=== PATIENT | female | born 1965 | race Caucasian/White ===

== ENCOUNTER 2023-09-10 10:46 | Outpatient (OUT) | payer BC, SELFPAY ==
--- NOTE | 2023-09-10 10:52 | US_ITS ---
The [address] [address] Patient Name: JESUS MCLAUGHLIN MRN: [id number] date: 1965 Sex: F Assigned Patient Location: US Current Patient Location: Accession/Order Number: [id number] Exam Date: 09/10/2023 10:55 Report Date: 09/10/2023 12:01 At the request of: NON-STAFF PHYSICIAN Procedure: US pelvis w/ transvaginal EXAMINATION: US pelvis w/ transvaginal HISTORY: Pelvic Pain COMPARISON: No relevant comparison available. FINDINGS: Transabdominal and transvaginal images The uterus is enlarged in size lobular contour and heterogeneous in echotexture measuring 10.4 x 6.2 x 6.8 cm. Anteflexed. Multiple myometrial masses the largest in the anterior fundal myometrium measures 2.2 x 2.2 x 1.9 cm The endometrium measures 9 mm, normal for premenopausal, thickened for postmenopausal The ovaries are not visualized No free fluid US/US pelvis w/ transvaginal IMPRESSION: Enlarged lobular uterus with multiple myometrial masses. Uterine fibroids are statistically favored Electronically authenticated by: BETSY RAMOS Date: 09/10/2023 12:01
== END 2023-09-10 10:47 | disposition home or self-care (01) ==
LOC: US 10:46
DX: N95.0 Postmenopausal bleeding (principal); M54.50 Low back pain, unspecified
CPT/HCPCS: 76830; 76856

== ENCOUNTER 2023-12-19 10:41 | Outpatient (OUT) | payer BC, SELFPAY ==
--- NOTE | 2023-12-19 10:44 | MM_ITS ---
Patient Name: JESUS MCLAUGHLIN MR#: [id number] : 1965 Exam Date: 12/19/2023 Ordering Doctor: Non-Staff Physician RADIOLOGY REPORT PROCEDURE: MM TOMOSYNTHESIS SCREENING BI COMPARISON: MG MAMM SCREEN 3D KARLIE CAD, 11/23/2022. MG MAMM SCREEN 3D KARLIE CAD, 11/02/2021. MG MAMM SCREEN 3D KARLIE CAD, 10/31/2020. MG MAMM KARLIE SCRN W CAD DIG, 08/30/2011. INDICATIONS: screening Calculator Name NCI Breast Cancer Risk Assessment Tool 5 Year Breast Cancer Risk 1.00% Lifetime Breast Cancer Risk 6.50% Personal Breast Cancer No Personal Ovarian Cancer No Treatments None Family Cancers Father with hodgkins lymphoma cancer at age 55. LOCATION: [facility] BREAST COMPOSITION: The breasts are heterogeneously dense,which may obscure small masses. FINDINGS: DIAGNOSTIC CATEGORY 1--NEGATIVE. RIGHT BREAST: No significant suspicious finding. No significant change has occurred. LEFT BREAST: No significant suspicious finding. No significant change has occurred. RECOMMENDATIONS: ROUTINE MAMMOGRAM AND CLINICAL EVALUATION IN 12 MONTHS. PLEASE NOTE: A NORMAL MAMMOGRAM DOES NOT EXCLUDE THE POSSIBILITY OF BREAST CANCER. A CLINICALLY SUSPICIOUS PALPABLE LUMP SHOULD BE BIOPSIED. Dictated by: Aristides Villanueva M.D. on 12/20/2023 at 15:06 Approved by: Aristides Villanueva M.D. on 12/20/2023 at 15:10
--- OUTSIDE RECORDS SUMMARY | 2023-12-19 11:03 | XMS_ITS | CCD ---
Author Organization [facility] Care Team Providers Care Lab Manager Name Role Phone MICHELE, DR ESTRADA Admitting Unavailable [facility], DR ESTRADA Attending Unavailable MIS, DR ESTRADA Primary Care Unavailable HAZEN, DR BETSY Hawley Consulting Unavailable MIS, DR ESTRADA Consulting Unavailable Problems Problem Classification Problem Date Documented Date Episodic/Chronic Other screening for suspected conditions (not mental disorders or infectious disease) (4 sources) Encounter for screening mammogram for malignant neoplasm of breast; Translations: [ENC SCR MAMMO MALIG NEOPLASM BREAST] Onset: 11-23-2022 Episodic Residual codes; unclassified (1 source) Family history of other malignant neoplasms of lymphoid, hematopoietic and related tissues; Translations: [FAM HX OTH MAL BETTIE LYMPH HEMATPOETC] Onset: 11-30-2022 Episodic Results Test Name Value Interpretation Reference Range Facil ity MG MAMM SCREEN 3D KARLIE CADon 11-23-2022 MG MAMM SCREEN 3D KARLIE CAD Patient: JESUS MCLAUGHLIN. Exam Date: 11/23/2022 : 1965 Gender:F Ordering : DR. NUZHAT ZHOU Admission #: [id number] Family : Order #: [id number] CLICK HERE TO VIEW EXAM RADIOLOGY REPORT PROCEDURE: MAMMOGRAM SCREENING 3D BILATERAL CAD COMPARISON: MG MAMM SCREEN 3D KARLIE CAD, 10/31/2020. MG MAMM SCREEN 3D KARLIE CAD, 11/02/2021. INDICATIONS: Screening mammography Calculator Name NCI Breast Cancer Risk Assessment Tool 5 Year Breast Cancer Risk 1.00% Lifetime Breast Cancer Risk 6.60% Personal Breast Cancer No Personal Ovarian Cancer No Treatments None Family Cancers Father with hodgkins lymphoma cancer at age 55. LOCATION: [facility] BREAST COMPOSITION: Heterogeneously dense,which may obscure small masses. FINDINGS: DIAGNOSTIC CATEGORY 2--BENIGN FINDING. NO CHANGE FROM COMPARISON. Scattered benign-appearing calcifications are present. RIGHT BREAST: No significant suspicious finding. LEFT BREAST: No significant suspicious finding. RECOMMENDATIONS: ROUTINE MAMMOGRAM AND CLINICAL EVALUATION IN 12 MONTHS. PLEASE NOTE: A NORMAL MAMMOGRAM DOES NOT EXCLUDE THE POSSIBILITY OF BREAST CANCER. A CLINICALLY SUSPICIOUS PALPABLE LUMP SHOULD BE BIOPSIED. Dictated by: Betsy Kellogg MD on 11/26/2022 at 09:52 Approved by: Betsy Kellogg MD on 11/26/2022 at 09:55 Normal [facility] Encounters Encounter Date Encounter Type Care Provider Facility Start: 11-23-2022 End: 11-24-[address] ESTRADA [facility] Facility: Payers Date Payer Category Payer Unknown [id number] 1958 Unknown [id number] Summary Purpose Family History No Family History Records Found Advance Directives No Advanced Directives Records Found Additional Source Comments INFORMATION SOURCE (unrecogn ized section and content) DATE CREATED AUTHOR 12/01/2022 [facility] FOR RECORDS PERTAINING TO PATIENTS WHO ARE OR HAVE BEEN ENROLLED IN A CHEMICAL DEPENDENCY/SUBSTANCEABUSE PROGRAM, SOME INFORMATION MAY BE OMITTED. This clinical summary was aggregated from multiple sources. Caution should be exercised in using it in the provision of clinical care. This summary normalizes information from multiple sources, and as a consequence, information in this document may materially change the coding, format and clinical context of patient data. In addition, data may be omitted in some cases. CLINICAL DECISIONS SHOULD BE BASED ON THE PRIMARY CLINICAL RECORDS. [employer] provides no warranty or guarantee of the accuracy or completeness of information in this document.
== END 2023-12-19 10:42 | disposition home or self-care (01) ==
LOC: MAMMO 10:41
DX: Z12.31 Encounter for screening mammogram for malignant neoplasm of breast (principal); Z80.7 Family history of other malignant neoplasms of lymphoid, hematopoietic and related tissues
CPT/HCPCS: 77063; 77067

== ENCOUNTER 2025-01-05 10:42 | Outpatient (OUT) | payer OTHER, SELFPAY ==
--- OUTSIDE RECORDS SUMMARY | 2023-11-27 10:04 | XMS_ITS ---
Author Organization The [facility] in [place] Address [address] [place] [address] Care Team Providers Care Barber Or Beauty Shop Manager Name Role Phone Anna MARION Bernabe Primary Care Provider Unav ailRICH Melton Unavailable [phone] REASON FOR VISIT post op bleeding Encounters Encounter Location Date Provider Diagnosis [facility] [address] [place] [address] 11/27/2023 RICH ROSAS Plan Of Treatment No Information Progress Notes * Alejandra MCCLENDON LDOB:1964 (58 yo F)Acc No.[id number]:11/27/2023 Patient: Alejandra HILL Carmine :1965 A ge:58 Y S ex:Female [address] [place] [address] * true * Date: Generated for Angella marlow/Shavon/eTransmitting on: 0 01/05/2025 10:44 AM EDT
--- OUTSIDE RECORDS SUMMARY | 2023-12-05 05:50 | XMS_ITS ---
Author Organization The [facility] in [place] Address [address] [place] [address] Care Team Providers Care County Tax Assessor Name Role Phone Anna MARION Bernabe Primary Care Provider Unav RICH Knutson Unavailable [phone] Allergies No Known Allergies REASON FOR VISIT po D&C H-Scope Medications Medication SIG (Take, Route, Frequency, Duration) Notes Start Date End Date Status [place] 3 Active Vitamin D Active Claritin Active Multivitamin Active Social History Tobacco Use: Social History Observation Description Date Details (start date - stop date) Never Smoker NA - NA Tobacco Use/Smoking Question Answer Notes Patient is a nonsmoker Alcohol Screen (Audit-C) Question Answer Notes Did you have a drink contain ing alcohol in the past year? Yes How often did you have 6 or more drinks on one occasion in the past year? Never (0 point) How many drinks did you have on a typical day when you were drinking in the past year? 1 or 2 drinks (0 point) How often did you have a dri nk containing alcohol in the past year? Less than monthly (1 point) Points 1 Interpretation Negative Problems Problem Type SNOMED Code ICD Code Onset Dates Problem Status W/U Status Risk Notes Problem 91295751 Menopausal and female climacteric states (N95.1) Active confirmed Vital Signs Weight 143.6 lbs 12/05/2023 Height 67 in 12/05/2023 Blood pressure systolic 170 mm Hg 12/05/19 24 Blood pressure diastolic 100 mm Hg 024 BMI 22.49 kg/m2 12/05/2023 Encounters Encounter Location Date Provider Diagnosis [facility] [address] [place] [address] 12/05/2023 RICH ZIMMERMAN Postoperative examination Z09 ; Menopausal and female climacteric states N95.1 ; Adenomyosis of the uterus N80.03 ; Endocrine disorder, unspecified E34.9 and Elevated blood-pressure reading, without diagnosis of hypertension R03.0 Assessments Encounter Date Diagnosis (ICD Code) Assessment Notes Treatment Notes Treatment Clinical Notes Section Notes 12/05/2023 Postoperative examination (ICD-10 - Z09) Patient has recovered well from delivery. No residual restrictions. RTO for annual. 12/05/2023 Menopausal and female climacteric states (ICD-10 - N95.1) Patient expresses interest in purusing bioidentical HRT. Reviewed no FDA regulation regarding their use and recommendation for conventional options. Declines. Reviewed risks of DVT, IL, stroke. Verbalizes understanding. Patient with elevated BPs today, which will need controlled prior to use of any HRT. 12/05/2023 Adenomyosis of the uterus (ICD-10 - N80.03) per pathology. No further intevention needed at this time 12/05/2023 Endocrine disorder, unspecified (ICD-10 - E34.9) 12/05/2023 Elevated blood-pressure reading, without diagnosis of hypertension (ICD-10 - R03.0) In office BPs given to patient to follow up with at PCP office Plan Of Treatment Treatment Notes Assessment Notes Postoperative examination Patient has re covered well from delivery. No residual restrictions. RTO for annual. Menopausal and female climacteric states Patient expresses interest in purusing bioidentical HRT. Reviewed no FDA regulation regarding their use and recommendation for conventional options. Declines. Reviewed risks of DVT, IL, stroke. Verbalizes understanding. Patient with elevated BPs today, which will need controlled prior to use of any HRT. Adenomyosis of the uterus per pathology. No further intevention needed at this time Elevated blood-pressure read ing, without diagnosis of hypertension In office BPs given to patient to follow up with at PCP office Pending Test Test Name Order Date SEX HORMONE BINDING GLOBULIN 12/05/2023 DHEA-Sulfate (LC) 12/05/2023 Progesterone (LC) 12/05/2023 Testosterone,Free and Total (LC) 024 Estrone (LC) 12/05/2023 Vitamin D, 25-Hydroxy 12/05/2023 Estradiol Level 12/05/2023 Cortisol 12/05/2023 Next Appt Details Follow Up: prn, annual, Reas on: Progress Notes * Alejandra MCCLENDON LDOB:1964 (58 yo F)Acc No.[id number]:12/05/2023 Progress Notes Patient: Alejandra HILL Provider: Gayathri Zimmerman DO :1965 A ge:58 Y S ex:Female Date:12/05/2023 [facility] Pcp:Bernabe Castillo MD Check In:09:38 AM ESTCheck O ut:10:48 AM EST Subjective: * Chief Complaints: * p o D&C H-Scope * HPI: G eneral: Here today 2 weeks post op from D&C, hysteroscopy, MyoSure. Recovering well. No concerns. Initially, no post op bleeding, then developed some bleeding for about 3 days before it starting again. No pain. Denies abnormal vaginal discharge, or vaginal itching, burning or odor. Denies fever. Normal bowel and bladder function. Denies fever. HAs not resumed intercourse. Notes that prior to bleeding she was getting bioidential HRT from a [employer]UIT [employer]MER elsewhere that included testosterone pellets. Feels that her bleeding started after estrogen was added to her formulation. Admits she was having significant night sweats and problems sleeping and is interested in pursuing continued use of HRT. Is not interested in conventional options. Desires bioidentical formulations. * ROS: G eneral/Constitutional: Chills d enies. F atigue d enies. F ever d enies. C ardiovascular: Irregular heartbeat d enies. P alpitations d enies.? R espiratory: Chest pain d enies. S hortness of breath d enies.? G astrointestinal: Abdominal pain d enies. G enitourinary: Urgent urination d enies. F requent urination d enies. P ainful urination d enies. * Active Problem List N95.0 Postmenopausal bleed ing Modified On:11/21/2023/U Status:confirmed R93.89 Abnormal findings on diagnostic imaging of other specified body structures Modified On:11/21/2023U Status:confirmed N95.1 Menopausal and femal e climacteric states Modified On:12/05/2023/U Status:confirmed N95.0 PMB (postmenopausal bleeding) Modified On:12/12/2023U Status:confirmed * Medical History: * Pharmacy Ancillary History: M enstrual History: M enarche Age: [age] L MP: s ome spotting C ontraception Method: T ubal Occlusion,Vasectomy (partner) S exual Activity: M onogamous (male partner) * OB History: P rior Pregnancies: Total Pregnancies: 2 Full Term: 2 Livin P regnancy # 1: S VD, boy, term, no complications. P regnancy # 2: S VD, girl, term, no complications. * Surgical History: t ubal ligation septoplasty H-scope/ D and C/ myosure 11/22/2023 * Hospitalization/Major Diagno stic Procedure: D enies Past Hospitalization * Family History: F ather: , hodgkins, diagnosed with Cancer. M other: , Heart Attack, diagnosed with Heart Disease, Hypertension, Diabetes. P aternal Grandfather: . P aternal Grandmother: . M aternal Grandfather: . M aternal Grandmother: , stroke, diagnosed with Heart Disease. 1 brother(s) - healthy. . * Social History: T obacco Use: T obacco Use/Smoking P atient is a n onsmoker Electronic Cigarette use C urrent user N o S exual History: S exual Abuse H istory: n one D rugs/Alcohol: A lcohol Screen (Audit-C) D id you have a drink containing alcohol in the past year? Y es H ow often did you have 6 or more drinks on one occasion in the past year? N ever (0 point) H ow many drinks did you have on a typical day when you were drinking in the past year? 1 or 2 drinks (0 point) H ow often did you have a drink containing alcohol in the past year? L ess than monthly (1 point) P oints 1 I nterpretation N egative Drugs H ave you used drugs other than those for medical reasons in the past 12 months? N o D oes the Patient have a History of Drug Abuse in the Past? N o Caffeine I ntake: n one Do you smoke marijuana?: Denies. * Medications: T akingClaritin Multivitamin [place] 3 Vitamin D Medication List reviewed and reconciled with the patientTaking Justin Taking Multivitamin Taking [place] 3 Taking Vitamin D Medication List reviewed and reconciled with the patient * Allergies: N .K.D.A.no[Allergies Verified] Objective: * Vitals: W t:143.6lbs, Ht: 67 in, BP: 155/92 mm Hg,170/100mm Hg, BMI:22.49Index, Ht-cm: 170.18 cm, Wt-k.14 kg. * Examination: G eneral Examinations: GENERAL APPEARANCE: A &OX3, no acute distress. HEENT: A T/NC, mucus membranes moist/pink, tongue midline.? NECK: s upple, no thyromegaly. RESPIRATORY: l ungs clear to auscultation bilaterally. CARDIO: r egular rate and rhythm. ABDOMEN: + BS, soft, nontender, not distended. FEMALE GENITOURINARY: n ormal vulvar tissues. With insertion of a speculum, normal vaginal mucosa and cervix. No blood in vault. Bimanual exam reveals bulky uterus, nontender. There is no evidence of adnexal mass. EXTREMITIES: n o edema. Assessment: * Assessment: 1. P ostoperative examination - Z09 (Primary) 2 . M enopausal and female climacteric states - N95.1 3 . A denomyosis of the uterus - N80.03 4 . E ndocrine disorder, unspecified - E34.9 5 . E levated blood-pressure reading, without diagnosis of hypertension - R03.0 Plan: * Treatment: 2. M enopausal and female climacteric states L AB: SEX HORMONE BINDING GLOBULIN L AB: DHEA-Sulfate (LC) L AB: Progesterone (LC) L AB: Testosterone,Free and Total (LC) L AB: Estrone (LC) L AB: Vitamin D, 25-Hydroxy L AB: Estradiol Level L AB: Cortisol Notes: Patient expresses interest in purusing bioidentical HRT. Reviewed no FDA regulation regarding their use and recommendation for conventional options. Declines. Reviewed risks of DVT, IL, stroke. Verbalizes understanding. Patient with elevated BPs today, which will need controlled prior to use of any HRT. 3. A denomyosis of the uterus Notes: per pathology. No further intevention needed at this time 4. E ndocrine disorder, unspecified L AB: SEX HORMONE BINDING GLOBULIN L AB: DHEA-Sulfate (LC) L AB: Progesterone (LC) L AB: Testosterone,Free and Total (LC) L AB: Estrone (LC) L AB: Vitamin D, 25-Hydroxy L AB: Estradiol Level L AB: Cortisol 5. E levated blood-pressure reading, without diagnosis of hypertension Notes: In office BPs given to patient to follow up with at PCP office * Procedure Codes: * Follow Up: p rn, annual * * Sign off status: Completed Visit Status: C HK (Check Out) true * Provider: Gayathri Zimmerman DO Date: 12/05/2023 Generated for Angella marlow/Shavon/Julioitting on: 0 01/05/2025 10:44 AM EDT History and Physical Notes * HPI (History of Present Illness) Category Sub-Category Detail Notes Category Not es General Here today 2 we eks post op from D&C, hysteroscopy, MyoSure. Recovering well. No concerns. Initially, no post op bleeding, then developed some bleeding for about 3 days before it starting again. No pain. Denies abnormal vaginal discharge, or vaginal itching, burning or odor. Denies fever. Normal bowel and bladder function. Denies fever. HAs not resumed intercourse. Notes that prior to bleeding she was getting bioidential HRT from a FRUIT TR[employer]MER elsewhere that included testosterone pellets. Feels that her bleeding started after estrogen was added to her formulation. Admits she was having significant night sweats and problems sleeping and is interested in pursuing continued use of HRT. Is not interested in conventional options. Desires bioidentical formulations. Examination Category Sub-Category Detail Notes Category Not es General Examinations GENERAL APPEARANCE: A&OX3, no acu te distress NECK: supple, no thyromega ly CARDIO: regular rate and rhy thm ABDOMEN: +BS, soft, nontender , not distended EXTREMITIES: no edema FEMALE GENITOURINARY: normal vulvar tiss ues. With insertion of a speculum, normal vaginal mucosa and cervix. No blood in vault. Bimanual exam reveals bulky uterus, nontender. There is no evidence of adnexal mass HEENT: AT/NC, mucus membran es moist/pink, tongue midline RESPIRATORY: lungs clear to auscu ltation bilaterally
--- OUTSIDE RECORDS SUMMARY | 2025-01-01 04:21 | XMS_ITS | Continuity of Care Document ---
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 Name Role Phone Anna MARION, Bernabe Unavailable Unavailabl e Allergies, Adverse Reactions, Alerts Substance Reaction Status Criticality doxycycline Nausea/Vomiting Active No Informati on Medications Medication Instructions Dosage Effective Dates (start - stop) Status Comments LISINOPRIL TABS 40MG TAKE 1 TABLET DAILY - Active FLUTICASONE PROP 50 MCG SPRAY SPRAY 1 - 2 SPRAYS IN EACH NOSTRIL DAILY NEEDED - Active Flonase Allergy Relief 50 mcg/actuation nasal spray,suspension spray 1 - 2 spray by intranasal route every day in each nostril as needed 50-100 MCG - Active lisinopril 40 mg tablet take 1 tablet by oral route every day 40 MG - No Longer Active Procedures Procedure Date OFFICE/OUTPATIENT VISIT, EST OFFICE/OUTPATIENT VISIT, EST US EXAM, PELVIC, LIMITED TRANSVAGINAL US, NON-OB OFFICE/OUTPATIENT VISIT, EST OFFICE/OUTPATIENT VISIT, EST OFFICE/OUTPATIENT VISIT, EST OFFICE/OUTPATIENT VISIT, EST OFFICE/OUTPATIENT VISIT, EST INFLUENZA ASSAY W/OPTIC OFFICE/OUTPATIENT VISIT, EST OFFICE/OUTPATIENT VISIT, EST PREV VISIT, EST, AGE 40-64 OFFICE/OUTPATIENT VISIT, EST OFFICE/OUTPATIENT VISIT, EST OFFICE/OUTPATIENT VISIT, EST OFFICE/OUTPATIENT VISIT, EST VOID TICKET Outside Vitamin b12 injection 0 THER/PROPH/DIAG INJ, SC/IM REMOVAL OF SKIN TAGS OFFICE/OUTPATIENT VISIT, EST OFFICE/OUTPATIENT VISIT, EST OFFICE/OUTPATIENT VISIT, EST OFFICE/OUTPATIENT VISIT, EST OFFICE/OUTPATIENT VISIT, EST OFFICE/OUTPATIENT VISIT, EST OFFICE/OUTPATIENT VISIT, EST OFFICE/OUTPATIENT VISIT, EST OFFICE/OUTPATIENT VISIT, EST OFFICE/OUTPATIENT VISIT, EST OFFICE/OUTPATIENT VISIT, EST OFFICE/OUTPATIENT VISIT, EST Advance Directives Directive Yes / No Effective Date File Name No Information Encounters Encounter Description Practice Location Reason(s) For Visit Diagnoses Date Provider Providers Copied on Encounter [facility], [address] [place] [address] [address], [place], [place], [address] , [place] tel:[phone] [facility] No Information Anna Kidd. [address], [address] Floor, [place], [place], [address], [place]. tel:[phone] [facility], [address] [place] [address] [address], [place], [place], [address] , [place] tel:[phone] [facility] No Information Anna Kidd. [address], [address] Floor, [place], [place], [id number], [place]. tel:[phone] [facility], [address] [place] [address] [address], [place], [place], [address] , [place] tel:[phone] [facility] No Information 5 Anna Kidd. [address], [address] Floor, [place], [place], [address], [place]. tel:[phone] OFFICE/OUTPA TIENT VISIT, [facility], [address] [place] [address] [address], [place], [place], [address] , [place] tel: [phone] [facility] ear fullness (chief complaint) Tinnitus, bilateral Feb-0 5 Anna Kidd. [address], [address] Floor, [place], [place], [address], [place]. tel:[phone] Referring Provider: Bernabe Trinh, [address] Floor, [place], [address] . tel:[phone] OFFICE/OUTPA TIENT VISIT, [facility], [address] [place] [address] [address], [place], [place], [address] , [place] tel:[phone] [facility] hypertension (chief complaint)viral illness (chief complaint) Elevated blood pressure readingViral illness 4 Anna Kidd. [address], [address] Floor, [place], [place], [address], [place]. tel:[phone] Referring Provider: Bernabe Trinh, [address], [place], [address] . tel:[phone] [facility], [address] [place] [address] [address], [place], [place], [address] , [place] tel:[phone] [facility] No Information 4 Anna Kidd. [address], [address] Floor, [place], [place], [address], [place]. tel:[phone] [facility], [address] [place] [address] [address], [place], [place], [address] , [place] tel:[phone] [facility] Leiomyoma of uterus, unspecifiedAbno rmal uterine bleeding (AUB) 4 Erasmo Varner. [address] [place], [place], [address], [place]. tel:[phone] Referring Provider: Gardenia Yung, [address] [place], [address] . tel:[phone] OFFICE/OUTPA TIENT VISIT, [facility], [address] [place] [address] [address], [place], [place], [address] , [place] tel:[phone] [facility] hypertension (chief complaint) HTN (hypertension), benign 4 Anna Kidd. [address], [address] Floor, [place], [place], [address], [place]. tel:[phone] Referring Provider: Bernabe Trinh, [address], [place], [address] . tel:[phone] [facility], [address] [place] [address] [address], [place], [place], [address] , [place] [phone] [facility] Abnormal uterine bleeding (AUB)Adenomyosi sIntramural and submucous leiomyoma of uterusSubmucous leiomyoma of uterus 4 Erasmo Varner. [address] [place], [place], [address], [place]. tel:[phone] Referring Provider: Gardenia Yung, [address] [place], [address] . tel:[phone] OFFICE/OUTPA TIENT VISIT, [facility], [address] [place] [address] [address], [place], [place], [address] , [place] tel:[phone] [facility] hypertension (chief complaint) HTN (hypertension), benign 4 Anna Kidd. [address], [address] Floor, [place], [place], [address], [place]. tel:[phone] Referring Provider: Bernabe Trinh, [address], [place], [address] . tel:[phone] OFFICE/OUTPA TIENT VISIT, [facility], [address] [place] [address] [address], [place], [place], [address] , [place] tel:[phone] [facility] hypertension (chief complaint) Elevated blood pressure reading 4 Anna Kidd. [address], [address] [facility], [place], [place], [address], [place]. tel:[phone] Referring Provider: Bernabe Trinh, [address] [facility], [place], [address] . tel:[phone] OFFICE/OUTPA TIENT VISIT, [facility], [address] [place] [address] [address], [place], [place], [address] , [place] tel:[phone] [facility] irreg. vag blg on HRT (chief complaint) Menopausal symptomsNeed for postmenopausal hormone replacementAdve rse effect of female hormone replacement therapy, subsequent encounterLeiomy erika of uterus, unspecifiedElev ated blood pressure reading 4 Loren Lopez. [address] [facility], [address] [facility], [place], [place], [address], [place]. tel:[phone] Referring Provider: Jessica Pimentel CNP S, [address] [facility] [address], [place], [address] . tel:[phone] OFFICE/OUTPA TIENT VISIT, [facility], [address] [place] [address] [address], [place], [place], [address] , [place] tel:[phone] [facility] elevated blood pressure (chief complaint)sinus symptoms (acute) (chief complaint)DDD (chief complaint) Acute seasonal allergic rhinitis, unspecified triggerElevated blood pressure readingDDD (degenerative disc disease), lumbar 4 Anna Kidd. [address], [address] Floor, [place], [place], [address], [place]. tel:[phone] Referring Provider: Bernabe Fondessy MD M, [address] Floor, [place], [address] . tel:[phone] OFFICE/OUTPA TIENT VISIT, [facility], [address] [place] [address] [address], [place], [place], [address] , [place] tel:[phone] [facility] sinus symptoms (acute) (chief complaint) Body achesChillsInfl uenza AEnlarged uterusAbnormal mensesPost-radha pausal bleeding 4 Anna Kidd. [address], [address] Floor, [place], [place], [address], [place]. tel:[phone] Referring Provider: Bernabe Trinh, [address] Floor, [place], [address] . tel:[phone] OFFICE/OUTPA TIENT VISIT, [facility], [address] [place] [address] [address], [place], [place], [address] , [place] tel:[phone] [facility] follow up on lab test(s) (chief complaint) Hematuria, unspecified typeDDD (degenerative disc disease), lumbarSciatic pain, leftBreast cancer screening by mammogramPost-m enopausal bleedingAcute left-sided low back pain without sciatica 4 Anna Kidd. [address], [address] Floor, [place], [place], [address], [place]. tel:[phone] Referring Provider: Bernabe Trinh, [address] Floor, [place], [address] . tel:[phone] PREV VISIT, EST, AGE 40-64 [facility], [address] [place] [address] Road [address], [place], [place], [address] , [place] tel:[phone] [facility] Anemia (chief complaint)preve ntive exam (chief complaint) DDD (degenerative disc disease), lumbarAnnual physical exam 3 Anna Kidd. [address], [address] Floor, [place], [place], [address], [place]. tel:[phone] Referring Provider: Bernabe Trinh, [address] Floor, [place], [address] . tel:[phone] OFFICE/OUTPA TIENT VISIT, [facility], [address] [place] [address] Road [address], [place], [place], [address] , [place] tel:[phone] [facility] musculoskeletal pain (chief complaint)follo w up on lab test(s) (chief complaint) Sciatic pain, leftAnemia, pernicious May- 3 Anna Kidd. [address], [address] Floor, [place], [place], [address], [place]. tel:[phone] Referring Provider: Bernabe Trinh, [address] Floor, [place], [address] . tel:[phone] OFFICE/OUTPA TIENT VISIT, [facility] [place] [facility], [address] [place] [address] [address], [place], [place], [address] , [place] tel:[phone] [facility] lump (chief complaint) Sebaceous cystScreening for colon cancerBreast cancer screening by [id number] deficiencyIron deficiency anemia, unspecified iron deficiency anemia type Nov- 2 Anna Kidd. [address], [address] Floor, [place], [place], [address], [place]. tel:[phone] Referring Provider: Bernabe Trinh, [address] Floor, [place], [address] . tel:[phone] OFFICE/OUTPA TIENT VISIT, [facility], [address] [place] [address] Road [address], [place], [place], [address] , [place] tel:[phone] [facility] Anemia (chief complaint) Iron deficiency anemia, unspecified iron deficiency anemia typeB12 deficiencyAbnor mal mensesFatigue, unspecified type Sep-0 1 Anna Kidd. [address], [address] Floor, [place], [place], [address], [place]. tel:[phone] Referring Provider: Bernabe Trinh, [address] Floor, [place], [address] . tel:[phone] OFFICE/OUTPA TIENT VISIT, [facility] [employer], [address] [place] [address] [address], [place], [place], [address] , [place] tel:[phone] [facility] follow up on lab test(s) (chief complaint) B12 deficiencyIron deficiency anemia, unspecified iron deficiency anemia type 1 Anna Kidd. [address], [address] Floor, [place], [place], [address], [place]. tel:[phone] Referring Provider: Bernabe Trinh, [address] Floor, [place], [address] . tel:[phone] [facility], [address] [place] [address] [address], [place], [place], [address] , [place] tel:[phone] [facility] Skin tag removal (chief complaint) Other benign neoplasm of skin of scalp and neck 0 Anna Kidd. [address], [address] Floor, [place], [place], [address], [place]. tel:[phone] Referring Provider: Bernabe Trinh, [address] Floor, [place], [address] . tel:[phone] OFFICE/OUTPA TIENT VISIT, [facility] [employer] [facility], [address] [place] [address] [address], [place], [place], [address] , [place] tel:[phone] [facility] Skin tag(s) (chief complaint) B12 deficiencySkin tagOther benign neoplasm of skin of scalp and neck 0 Anna Kidd. [address], [address] Floor, [place], [place], [address], [place]. tel:[phone] Referring Provider: Bernabe Trinh, [address] Floor, [place], [address] . tel:[phone] OFFICE/OUTPA TIENT VISIT, [facility], [address] [place] [address] [address], [place], [place], [address] , [place] tel:[phone] [facility] follow up on lab test(s) (chief complaint) Iron deficiency anemia, unspecified iron deficiency anemia typePerimenopau salB12 deficiency 0 Anna Kidd. [address], [address] Floor, [place], [place], [address], [place]. tel:[phone] Referring Provider: Bernabe Trinh, [address], [place], [address] . tel:[phone] OFFICE/OUTPA TIENT VISIT, [facility], [address] [place] [address] [address], [facility] [place], [address] , [place] tel:[phone] [facility] follow up on lab test(s) (chief complaint) Iron deficiency anemia, unspecified iron deficiency anemia type Apr- 0 Anna Kidd. [address], [address] Floor, [place], [place], [address], [place]. tel:[phone] Referring Provider: Bernabe Trinh, [address] Floor, [place], [address] . tel:[phone] OFFICE/OUTPA TIENT VISIT, [facility], [address] [place] [address] [address], [place], [place], [address] , [place] tel:[phone] [facility] follow up on lab test(s) (chief complaint) Iron deficiency anemia, unspecified iron deficiency anemia typeSkin tag of ear 0 Anna Kidd. [address], [address] Floor, [place], [place], [address], [place]. tel:[phone] Referring Provider: Bernabe Trinh, [address] Floor, [place], [address] . tel:[phone] OFFICE/OUTPA TIENT VISIT, [facility], [address] [place] [address] [address], [place], [place], [address] , [place] tel:[phone] [facility] anxiety (chief complaint)Vitam in B12 deficiency (chief complaint) AnxietyAnemia, pernicious 9 Anna Kidd. [address], [address] Floor, [place], [place], [address], [place]. tel:[phone] Referring Provider: Bernabe Trinh, [address] Floor, [place], [address] . tel:[phone] OFFICE/OUTPA TIENT VISIT, [facility], [address] [place] [address] [address], [place], [place], [address] , [place] tel:[phone] [facility] anxiety (chief complaint) Anxiety 9 Anna Kidd. [address], [address] Floor, [place], [place], [address], [place]. tel:[phone] Referring Provider: Bernabe Trinh, [address] Floor, [place], [address] . tel:[phone] OFFICE/OUTPA TIENT VISIT, [facility], [address] [place] [address] [address], [place], [place], [address] , [place] tel:[phone] [facility] anxiety (chief complaint) Anxiety 9 Anna Kidd. [address], [address] Floor, [place], [place], [address], [place]. tel:[phone] Referring Provider: Bernabe Trinh, [address] Floor, [place], [address] . tel:[phone] OFFICE/OUTPA TIENT VISIT, [facility], [address] [place] [address] [address], [place], [place], [address] , [place] tel:[phone] [facility] hypertension (chief complaint)follo w up on lab test(s) (chief complaint) HTN (hypertension), benignHigh cholesterol 9 Anna Kidd. [address], [address] Floor, [place], [place], [address], [place]. tel:[phone] Referring Provider: Bernabe Trinh, [address] Floor, [place], [address] . tel:[phone] OFFICE/OUTPA TIENT VISIT, [facility], [address] [place] [address] [address], [place], [place], [address] , [place] tel:[phone] [facility] hypertension (chief complaint) HTN (hypertension), benignLow serum potassiumHigh cholesterol 8 Anna Kidd. [address], [address] Floor, [place], [place], [address], [place]. tel:[phone] Referring Provider: Bernabe Trinh, [address] [facility], [place], [address] . tel:[phone] OFFICE/OUTPA TIENT VISIT, [facility], [address] [place] [address] [address], [place], [place], [address] , [place] [phone] [facility] hypertension (chief complaint) HTN (hypertension), benign 8 Anna Kidd. [address], [address] Floor, [place], [place], [address], [place]. tel:[phone] Referring Provider: Bernabe Trinh, [address] [facility], [place], [address] . tel:[phone] OFFICE/OUTPA TIENT VISIT, [facility], [address] [place] [address] [address], [place], [place], [address] , [place] tel:[phone] [facility] Not focused (chief complaint)aller gies (chief complaint) Acute seasonal allergic rhinitis, unspecified triggerOther depression 7 Anna Kidd. [address] Floor, [place], [place], [address], [place]. tel:[phone] Referring Provider: Bernabe Trinh, [address] Floor, [place], [address] . tel:[phone] OFFICE/OUTPA TIENT VISIT, [facility], [address], [place], [place], [address] , [place] tel:[phone] [facility] Discuss test results (chief complaint)Heada carol (chief complaint) Anemia, perniciousBreas t cancer screening Anna Kidd. [address] Floor, [place], [place], [address], [place]. tel:[phone] Referring Provider: Bernabe Trinh, [address] Floor, [place], [address] . tel:[phone] [place] [facility], [address] [place] [address] [address], [place], [place], [address] , [place] tel:[phone] [facility] No Information Anna Kidd. [address] Floor, [place], [place], [address], [place]. tel:[phone] Family History Family Member Type Diagnosis Age At Onset Father Problem Hodgkin's lymphoma Mother Problem heart attack, heart disease, HTN, DM Father Problem (finding) Payers Payer name Insurance type Covered alliance party ID Authorviolet meng(s) [facility] CI [id number] Social History Type Description Quantity Date Captured Comments Sex Female Smoking Status No Information Sexual Orientation Straight or heterosexual May Chief Complaint And Reason For Visit No Information Reason For Referral Reason For Referral No Information Plan Of Treatment Date Type Action Status Goal Urinalysis. Due on due Goal FIT. Due on due Goal Hepatitis C screening. Due o n due Goal Pap liquid based for cytology. Due on due Goal CONFERENCE SERVICES MANAGER/Breast exam. Due on due Goal ECG. Due on due Goal Depression screening. Due on due Goal Unhealthy drug u se screening. Due on due Goal Sigmoidoscopy. Due on due Goal DEXA scan. Due on due Goal Digital Mammogra m Screening. Due on due Goal Cytology report of Cervical and vaginal smear or scraping Cyto stain. Due on due Goal Zoster vaccine. Due on due Goal Pap/HPV testing. Due on due Goal Zoster vaccine (). Due on due Goal HPV. Due on due Goal BMP. Due on due Goal CT-Colonography. Due on due Goal Tobacco screening. Due on due Goal Influenza vaccine. Due on due Goal Colonoscopy. Due on 025 due Goal FIT-DNA. Due on due Goal URINALYSIS NONAU TO W/O SCOPE. Due on due Goal Td vaccine. Due on 25 due Goal EKG. Due on due Goal Glucose. Due on due Goal Zoster vaccine (). Due on due Goal Glucose. Due on due Goal Depression screening. Due on due Goal Pap liquid based for cytology. Due on due Goal CT-Colonography. Due on due Goal EKG. Due on due Goal Influenza vaccine. Due on due Goal FIT-DNA. Due on due Goal DEXA scan. Due on due Goal Cytology report of Cervical and vaginal smear or scraping Cyto stain. Due on due Goal URINALYSIS NONAU TO W/O SCOPE. Due on due Goal Digital Mammogra m Screening. Due on due Goal Sigmoidoscopy. Due on due Goal FIT. Due on due Goal Td vaccine. Due on due Goal Tobacco screening. Due on due Goal CONFERENCE SERVICES MANAGER/Breast exam. Due on due Goal Hepatitis C screening. Due o n due Goal Urinalysis. Due on due Goal BMP. Due on due Goal ECG. Due on due Goal Zoster vaccine. Due on due Goal Pap/HPV testing. Due on due Goal Unhealthy drug u se screening. Due on due Goal HPV. Due on due Goal Colonoscopy. Due on due Goal Digital Mammogra m Screening. Due on due Goal CONFERENCE SERVICES MANAGER/Breast exam. Due on due Goal Glucose. Due on due Goal ECG. Due on due Goal BMP. Due on due Goal Urinalysis. Due on due Goal Lipid panel. Due on due Goal FIT-DNA. Due on due Goal Cytology report of Cervical and vaginal smear or scraping Cyto stain. Due on due Goal Mammogram. Due on due Goal FIT. Due on due Goal Colonoscopy. Due on due Goal Pap/HPV testing. Due on due Goal Pap liquid based for cytology. Due on due Goal Zoster vaccine. Due on due Goal Sigmoidoscopy. Due on due Goal Unhealthy drug u se screening. Due on due Goal Td vaccine. Due on due Goal SCREENINGMAMMOGR APHYDIGITAL. Due on due Goal Depression screening. Due on due Goal URINALYSIS NONAU TO W/O SCOPE. Due on due Goal IFOB. Due on due Goal Influenza vaccine. Due on Oc due Goal FOBT. Due on due Goal EKG. Due on due Goal Zoster vaccine (1st). Due on due Goal CT-Colonography. Due on due Goal HPV. Due on due Goal Hepatitis C screening. Due o n due Goal Influenza vaccine. Due on Oc due Goal CT-Colonography. Due on due Goal Hepatitis C screening. Due o n due Goal Sigmoidoscopy. Due on due Goal Digital Mammogra m Screening. Due on due Goal Zoster vaccine (). Due on due Goal Depression screening. Due on due Goal Cytology report of Cervical and vaginal smear or scraping Cyto stain. Due on due Goal FIT. Due on due Goal HPV. Due on due Goal Glucose. Due on due Goal Colonoscopy. Due on due Goal Urinalysis. Due on due Goal BMP. Due on due Goal FIT-DNA. Due on due Goal EKG. Due on due Goal Td vaccine. Due on due Goal ECG. Due on due Goal Pap liquid based for cytology. Due on due Goal URINALYSIS NONAU TO W/O SCOPE. Due on due Goal Zoster vaccine. Due on due Goal DEXA scan. Due on due Goal Unhealthy drug u se screening. Due on due Goal Pap/HPV testing. Due on due Goal CONFERENCE SERVICES MANAGER/Breast exam. Due on due Goal FIT. Due on due Goal Zoster vaccine (). Due on due Goal HPV. Due on due Goal Depression screening. Due on due Goal Cytology report of Cervical and vaginal smear or scraping Cyto stain. Due on due Goal IFOB. Due on due Goal Colonoscopy. Due on due Goal FOBT. Due on due Goal Unhealthy drug u se screening. Due on due Goal Sigmoidoscopy. Due on due Goal Td vaccine. Due on due Goal Hepatitis C screening. Due o n due Goal CT-Colonography. Due on due Goal EKG. Due on due Goal SCREENINGMAMMOGR APHYDIGITAL. Due on due Goal Digital Mammogra m Screening. Due on due Goal Pap/HPV testing. Due on due Goal Pap liquid based for cytology. Due on due Goal Mammogram. Due on due Goal Zoster vaccine. Due on due Goal CONFERENCE SERVICES MANAGER/Breast exam. Due on due Goal BMP. Due on due Goal Urinalysis. Due on due Goal ECG. Due on due Goal Lipid panel. Due on due Goal FIT-DNA. Due on due Goal URINALYSIS NONAU TO W/O SCOPE. Due on due Goal Influenza vaccine. Due on Oc due Goal Glucose. Due on due Goal FIT. Due on due Goal CT-Colonography. Due on due Goal Pap/HPV testing. Due on due Goal Digital Mammogra m Screening. Due on due Goal Td vaccine. Due on due Goal Colonoscopy. Due on due Goal EKG. Due on due Goal Zoster vaccine. Due on due Goal Unhealthy drug u se screening. Due on due Goal CONFERENCE SERVICES MANAGER/Breast exam. Due on due Goal Influenza vaccine. Due on due Goal Glucose. Due on due Goal URINALYSIS NONAU TO W/O SCOPE. Due on due Goal FIT-DNA. Due on due Goal Sigmoidoscopy. Due on due Goal Hepatitis C screening. Due o n due Goal DEXA scan. Due on due Goal Pap liquid based for cytology. Due on due Goal Zoster vaccine (1st). Due on due Goal HPV. Due on due Goal BMP. Due on due Goal Depression screening. Due on due Goal Cytology report of Cervical and vaginal smear or scraping Cyto stain. Due on due Goal Urinalysis. Due on due Goal ECG. Due on due Goal Hepatitis C screening. Due o n due Goal CONFERENCE SERVICES MANAGER/Breast exam. Due on due Goal Pap liquid based for cytology. Due on due Goal Glucose. Due on due Goal Zoster vaccine. Due on due Goal URINALYSIS NONAU TO W/O SCOPE. Due on due Goal FIT-DNA. Due on due Goal FIT. Due on due Goal Digital Mammogra m Screening. Due on due Goal DEXA scan. Due on due Goal Influenza vaccine. Due on due Goal Depression screening. Due on due Goal Pap/HPV testing. Due on due Goal CT-Colonography. Due on due Goal EKG. Due on due Goal Sigmoidoscopy. Due on due Goal Zoster vaccine (). Due on due Goal Td vaccine. Due on due Goal Colonoscopy. Due on due Goal HPV. Due on due Goal Cytology report of Cervical and vaginal smear or scraping Cyto stain. Due on due Goal Unhealthy drug u se screening. Due on due Goal ECG. Due on due Goal Urinalysis. Due on due Goal BMP. Due on due Goal Mammogram. Due on due Goal Hepatitis C screening. Due o n due Goal Pap liquid based for cytology. Due on due Goal Urinalysis. Due on due Goal ECG. Due on due Goal BMP. Due on due Goal Lipid panel. Due on due Goal Sigmoidoscopy. Due on due Goal Digital Mammogra m Screening. Due on due Goal Cytology report of Cervical and vaginal smear or scraping Cyto stain. Due on due Goal Zoster vaccine (). Due on due Goal CT-Colonography. Due on due Goal URINALYSIS NONAU TO W/O SCOPE. Due on due Goal IFOB. Due on due Goal FIT. Due on due Goal Depression screening. Due on due Goal Unhealthy drug u se screening. Due on due Goal Pap/HPV testing. Due on due Goal Td vaccine. Due on due Goal FOBT. Due on due Goal Zoster vaccine. Due on due Goal CONFERENCE SERVICES MANAGER/Breast exam. Due on due Goal Influenza vaccine. Due on due Goal SCREENINGMAMMOGR APHYDIGITAL. Due on due Goal Colonoscopy. Due on due Goal EKG. Due on due Goal Glucose. Due on due Goal FIT-DNA. Due on due Goal HPV. Due on due Goal Pap liquid based for cytology. Due on due Goal FIT-DNA. Due on due Goal CONFERENCE SERVICES MANAGER/Breast exam. Due on due Goal CT-Colonography. Due on due Goal Td vaccine. Due on due Goal Hepatitis C screening. Due o n due Goal Colonoscopy. Due on due Goal DEXA scan. Due on due Goal Cytology report of Cervical and vaginal smear or scraping Cyto stain. Due on due Goal URINALYSIS NONAU TO W/O SCOPE. Due on due Goal Unhealthy drug u se screening. Due on due Goal Glucose. Due on due Goal Influenza vaccine. Due on due Goal Digital Mammogra m Screening. Due on due Goal Zoster vaccine (). Due on due Goal EKG. Due on due Goal Zoster vaccine. Due on due Goal FIT. Due on due Goal Pap/HPV testing. Due on due Goal Depression screening. Due on due Goal HPV. Due on due Goal ECG. Due on due Goal Urinalysis. Due on due Goal BMP. Due on due Goal Influenza vaccine. Due on due Goal Pap liquid based for cytology. Due on due Goal FIT. Due on due Goal CT-Colonography. Due on due Goal Zoster vaccine. Due on due Goal Cytology report of Cervical and vaginal smear or scraping Cyto stain. Due on due Goal BMP. Due on due Goal ECG. Due on due Goal Urinalysis. Due on due Goal EKG. Due on due Goal Colonoscopy. Due on 024 due Goal Hepatitis C screening. Due o n due Goal CONFERENCE SERVICES MANAGER/Breast exam. Due on due Goal DEXA scan. Due on due Goal Td vaccine. Due on due Goal Depression screening. Due on due Goal Pap/HPV testing. Due on due Goal URINALYSIS NONAU TO W/O SCOPE. Due on due Goal Zoster vaccine (). Due on due Goal HPV. Due on due Goal Glucose. Due on due Goal Unhealthy drug u se screening. Due on due Goal Digital Mammogra m Screening. Due on due Goal FIT-DNA. Due on due Goal EKG. Due on due Goal Unhealthy drug u se screening. Due on due Goal CONFERENCE SERVICES MANAGER/Breast exam. Due on due Goal Glucose. Due on due Goal Influenza vaccine. Due on due Goal Cytology report of Cervical and vaginal smear or scraping Cyto stain. Due on due Goal DEXA scan. Due on due Goal FIT. Due on due Goal Pap liquid based for cytology. Due on due Goal Colonoscopy. Due on 024 due Goal Depression screening. Due on due Goal Zoster vaccine (1st). Due on due Goal Digital Mammogra m Screening. Due on due Goal Hepatitis C screening. Due o n due Goal HPV. Due on due Goal Pap/HPV testing. Due on due Goal Td vaccine. Due on due Goal FIT-DNA. Due on due Goal CT-Colonography. Due on due Goal URINALYSIS NONAU TO W/O SCOPE. Due on due Goal Zoster vaccine. Due on due Goal BMP. Due on due Goal Urinalysis. Due on due Goal ECG. Due on due Goal Pap/HPV testing. Due on due Goal Colonoscopy. Due on 023 due Goal BMP. Due on due Goal Digital Mammogra m Screening. Due on due Goal HPV. Due on due Goal CONFERENCE SERVICES MANAGER/Breast exam. Due on due Goal Urinalysis. Due on due Goal ECG. Due on due Goal CT-Colonography. Due on due Goal EKG. Due on due Goal Zoster vaccine. Due on due Goal FIT-DNA. Due on due Goal URINALYSIS NONAU TO W/O SCOPE. Due on due Goal Unhealthy drug u se screening. Due on due Goal Pap liquid based for cytology. Due on due Goal Influenza vaccine. Due on Oc due Goal DEXA scan. Due on due Goal Zoster vaccine (). Due on due Goal Glucose. Due on due Goal Td vaccine. Due on due Goal Cytology report of Cervical and vaginal smear or scraping Cyto stain. Due on due Goal Depression screening. Due on due Goal Hepatitis C screening. Due o n due Goal FIT. Due on due Goal HPV. Due on due Goal Hepatitis C screening. Due o n due Goal Zoster vaccine. Due on due Goal Zoster vaccine (). Due on due Goal CONFERENCE SERVICES MANAGER/Breast exam. Due on due Goal URINALYSIS NONAU TO W/O SCOPE. Due on due Goal Glucose. Due on due Goal FIT. Due on due Goal Urinalysis. Due on due Goal BMP. Due on due Goal ECG. Due on due Goal Digital Mammogra m Screening. Due on due Goal EKG. Due on due Goal FIT-DNA. Due on due Goal Td vaccine. Due on due Goal Cytology report of Cervical and vaginal smear or scraping Cyto stain. Due on due Goal DEXA scan. Due on due Goal CT-Colonography. Due on due Goal Influenza vaccine. Due on due Goal Unhealthy drug u se screening. Due on due Goal Depression screening. Due on due Goal Pap liquid based for cytology. Due on due Goal Pap/HPV testing. Due on due Goal Colonoscopy. Due on 023 due Goal Colonoscopy. Due on 022 due Goal FIT. Due on due Goal DEXA scan. Due on due Goal EKG. Due on due Goal Zoster vaccine. Due on due Goal HPV. Due on due Goal CT-Colonography. Due on due Goal URINALYSIS NONAU TO W/O SCOPE. Due on due Goal Glucose. Due on due Goal Cytology report of Cervical and vaginal smear or scraping Cyto stain. Due on due Goal Td vaccine. Due on due Goal Urinalysis. Due on due Goal ECG. Due on due Goal CONFERENCE SERVICES MANAGER/Breast exam. Due on due Goal Digital Mammogra m Screening. Due on due Goal Influenza vaccine. Due on due Goal FIT-DNA. Due on due Goal Pap liquid based for cytology. Due on due Goal Zoster vaccine (). Due on due Goal Depression screening. Due on due Goal Pap/HPV testing. Due on due Goal BMP. Due on due Goal Hepatitis C screening. Due o n due Goal Unhealthy drug u se screening. Due on due Goal Urinalysis. Due on due Goal BMP. Due on due Goal ECG. Due on due Goal Glucose. Due on due Goal Influenza vaccine. Due on due Goal Cytology report of Cervical and vaginal smear or scraping Cyto stain. Due on due Goal Zoster vaccine (). Due on due Goal DEXA scan. Due on due Goal Td vaccine. Due on due Goal EKG. Due on due Goal Pap/HPV testing. Due on due Goal FIT-DNA. Due on due Goal Digital Mammogra m Screening. Due on due Goal URINALYSIS NONAU TO W/O SCOPE. Due on due Goal HPV. Due on due Goal Pap liquid based for cytology. Due on due Goal CT-Colonography. Due on due Goal Colonoscopy. Due on due Goal Depression screening. Due on due Goal CONFERENCE SERVICES MANAGER/Breast exam. Due on due Goal FIT. Due on due Goal FIT-DNA. Due on due Goal Td vaccine. Due on due Goal FIT. Due on due Goal DEXA scan. Due on due Goal Zoster vaccine (1st). Due on due Goal Cytology report of Cervical and vaginal smear or scraping Cyto stain. Due on due Goal Influenza vaccine. Due on due Goal CT-Colonography. Due on due Goal Pap/HPV testing. Due on due Goal Colonoscopy. Due on due Goal Pap liquid based for cytology. Due on due Goal Depression screening. Due on due Goal Glucose. Due on due Goal HPV. Due on due Goal Digital Mammogra m Screening. Due on due Goal URINALYSIS NONAU TO W/O SCOPE. Due on due Goal EKG. Due on due Goal CONFERENCE SERVICES MANAGER/Breast exam. Due on due Goal ECG. Due on due Goal Urinalysis. Due on due Goal BMP. Due on due Goal CONFERENCE SERVICES MANAGER/Breast exam. Due on due Goal Cytology report of Cervical and vaginal smear or scraping Cyto stain. Due on due Goal URINALYSIS NONAU TO W/O SCOPE. Due on due Goal FIT. Due on due Goal Glucose. Due on due Goal Influenza vaccine. Due on due Goal Colonoscopy. Due on due Goal Td vaccine. Due on 20 due Goal Depression screening. Due on due Goal Digital Mammogra m Screening. Due on due Goal Pap liquid based for cytology. Due on due Goal HPV. Due on due Goal Pap/HPV testing. Due on due Goal Zoster vaccine (1st). Due on due Goal CT-Colonography. Due on due Goal EKG. Due on due Goal DEXA scan. Due on 0 due Goal Urinalysis. Due on 20 due Goal FIT-DNA. Due on due Goal BMP. Due on due Goal ECG. Due on due Goal CONFERENCE SERVICES MANAGER/Breast exam. Due on due Goal Pap/HPV testing. Due on due Goal Zoster vaccine (). Due on due Goal Urinalysis. Due on due Goal BMP. Due on due Goal Depression screening. Due on due Goal Td vaccine. Due on due Goal FIT-DNA. Due on due Goal HPV. Due on due Goal CT-Colonography. Due on due Goal EKG. Due on due Goal Colonoscopy. Due on 020 due Goal ECG. Due on due Goal DEXA scan. Due on 0 due Goal Glucose. Due on due Goal Digital Mammogra m Screening. Due on due Goal URINALYSIS NONAU TO W/O SCOPE. Due on due Goal Pap liquid based for cytology. Due on due Goal Influenza vaccine. Due on due Goal FIT. Due on due Goal Cytology report of Cervical and vaginal smear or scraping Cyto stain. Due on due Goal Depression screening. Due on due Goal Colonoscopy. Due on 020 due Goal Influenza vaccine. Due on Oc due Goal Cytology report of Cervical and vaginal smear or scraping Cyto stain. Due on due Goal FIT. Due on due Goal Glucose. Due on due Goal Digital Mammogra m Screening. Due on due Goal CONFERENCE SERVICES MANAGER/Breast exam. Due on due Goal URINALYSIS NONAU TO W/O SCOPE. Due on due Goal ECG. Due on due Goal Zoster vaccine (). Due on due Goal Pap/HPV testing. Due on due Goal BMP. Due on due Goal Urinalysis. Due on [address]-Colon[address]. Due on due Goal FIT-DNA. Due on due Goal DEXA scan. Due on 0 due Goal EKG. Due on due Goal Pap liquid based for cytology. Due on due Goal HPV. Due on due Goal Td vaccine. Due on 20 due Goal Colonoscopy. Due on due Goal Pap liquid based for cytology. Due on due Goal URINALYSIS NONAU TO W/O SCOPE. Due on due Goal HPV. Due on due Goal Digital Mammogra m Screening. Due on due Goal Cytology report of Cervical and vaginal smear or scraping Cyto stain. Due on due Goal Depression screening. Due on due Goal Pap/HPV testing. Due on due Goal FIT. Due on due Goal CONFERENCE SERVICES MANAGER/Breast exam. Due on due Goal DEXA scan. Due on 0 due Goal Glucose. Due on due Goal FIT-DNA. Due on due Goal CT-Colonography. Due on due Goal BMP. Due on due Goal EKG. Due on due Goal Td vaccine. Due on due Goal Influenza vaccine. Due on due Goal Zoster vaccine (). Due on due Goal ECG. Due on due Goal Urinalysis. Due on due Goal Pap liquid based for cytology. Due on due Goal EKG. Due on due Goal Colonoscopy. Due on 020 due Goal Td vaccine. Due on due Goal URINALYSIS NONAU TO W/O SCOPE. Due on due Goal Pap/HPV testing. Due on due Goal FIT. Due on due Goal FIT-DNA. Due on due Goal CT-Colonography. Due on due Goal Digital Mammogra m Screening. Due on due Goal ECG. Due on due Goal Urinalysis. Due on due Goal BMP. Due on due Goal CONFERENCE SERVICES MANAGER/Breast exam. Due on due Goal Glucose. Due on due Goal FOBT. Due on due Goal Cytology report of Cervical and vaginal smear or scraping Cyto stain. Due on due Goal Depression screening. Due on due Goal DEXA scan. Due on 0 due Goal Influenza vaccine. Due on due Goal HPV. Due on due Goal Zoster vaccine (). Due on due Goal IFOB. Due on due Goal IFOB. Due on due Goal Depression screening. Due on due Goal URINALYSIS NONAU TO W/O SCOPE. Due on due Goal Colonoscopy. Due on 019 due Goal Mammogram. Due on 9 due Goal EKG. Due on due Goal CONFERENCE SERVICES MANAGER/Breast exam. Due on due Goal Glucose. Due on due Goal Cytology report of Cervical and vaginal smear or scraping Cyto stain. Due on due Goal Td vaccine. Due on 19 due Goal Influenza vaccine. Due on due Goal Zoster vaccine. Due on due Goal Pap liquid based for cytology. Due on due Goal FOBT. Due on due Goal Pap/HPV testing. Due on due Goal Diabetes screening. Due on due Goal ECG. Due on due Goal BMP. Due on due Goal Urinalysis. Due on due Goal Eye exam. Due on due Goal Lipid panel. Due on due Goal Mammogram. Due on 9 due Goal Td vaccine. Due on 19 due Goal Zoster vaccine. Due on due Goal Influenza vaccine. Due on due Goal Cytology report of Cervical and vaginal smear or scraping Cyto stain. Due on due Goal Glucose. Due on due Goal Pap/HPV testing. Due on due Goal IFOB. Due on due Goal FOBT. Due on due Goal Pap liquid based for cytology. Due on due Goal EKG. Due on due Goal Colonoscopy. Due on due Goal CONFERENCE SERVICES MANAGER/Breast exam. Due on due Goal Depression screening. Due on due Goal URINALYSIS NONAU TO W/O SCOPE. Due on due Goal BMP. Due on due Goal ECG. Due on due Goal Eye exam. Due on due Goal Urinalysis. Due on due Goal Diabetes screening. Due on due Goal Lipid panel. Due on due Goal Pap liquid based for cytology. Due on due Goal IFOB. Due on due Goal FOBT. Due on due Goal Mammogram. Due on due Goal EKG. Due on due Goal Colonoscopy. Due on due Goal Influenza vaccine. Due on due Goal CONFERENCE SERVICES MANAGER/Breast exam. Due on due Goal Glucose. Due on due Goal Zoster vaccine. Due on due Goal Pap/HPV testing. Due on due Goal Cytology report of Cervical and vaginal smear or scraping Cyto stain. Due on due Goal Td vaccine. Due on due Goal Eye exam. Due on due Goal Urinalysis. Due on due Goal Lipid panel. Due on due Goal URINALYSIS NONAU TO W/O SCOPE. Due on due Goal Depression screening. Due on due Goal Diabetes screening. Due on due Goal BMP. Due on due Goal ECG. Due on due Goal Colonoscopy. Due on due Goal EKG. Due on due Goal Mammogram. Due on 9 due Goal CONFERENCE SERVICES MANAGER/Breast exam. Due on due Goal Td vaccine. Due on 19 due Goal Zoster vaccine. Due on due Goal Influenza vaccine. Due on due Goal Pap/HPV testing. Due on due Goal IFOB. Due on due Goal FOBT. Due on due Goal Cytology report of Cervical and vaginal smear or scraping Cyto stain. Due on due Goal Glucose. Due on due Goal Pap liquid based for cytology. Due on due Goal URINALYSIS NONAU TO W/O SCOPE. Due on due Goal Depression screening. Due on due Goal Diabetes screening. Due on due Goal Lipid panel. Due on due Goal BMP. Due on due Goal Urinalysis. Due on 19 due Goal ECG. Due on due Goal Eye exam. Due on due Goal Lipid panel. Due on 019 due Goal URINALYSIS NONAU TO W/O SCOPE. Due on due Goal FOBT. Due on due Goal SCREENINGMAMMOGR APHYDIGITAL. Due on due Goal Digital Mammogra m Screening. Due on due Goal Influenza vaccine. Due on due Goal Cytology report of Cervical and vaginal smear or scraping Cyto stain. Due on due Goal Glucose. Due on due Goal EKG. Due on due Goal Td vaccine. Due on 18 due Goal Pap/HPV testing. Due on due Goal CONFERENCE SERVICES MANAGER/Breast exam. Due on due Goal Colonoscopy. Due on 018 due Goal IFOB. Due on due Goal Zoster vaccine. Due on due Goal Mammogram. Due on 9 due Goal Depression screening. Due on due Goal Pap liquid based for cytology. Due on due Goal BMP. Due on due Goal Urinalysis. Due on due Goal ECG. Due on due Goal Eye exam. Due on due Goal Diabetes screening. Due on due Goal Eye exam. Due on due Goal Urinalysis. Due on 18 due Goal ECG. Due on due Goal Diabetes screening. Due on due Goal BMP. Due on due Goal Colonoscopy. Due on 018 due Goal Depression screening. Due on due Goal Zoster vaccine. Due on due Goal Td vaccine. Due on 18 due Goal CONFERENCE SERVICES MANAGER/Breast exam. Due on due Goal Glucose. Due on due Goal EKG. Due on due Goal Cytology report of Cervical and vaginal smear or scraping Cyto stain. Due on due Goal Pap liquid based for cytology. Due on due Goal Digital Mammogra m Screening. Due on due Goal FOBT. Due on due Goal SCREENINGMAMMOGR APHYDIGITAL. Due on due Goal Mammogram. Due on 9 due Goal URINALYSIS NONAU TO W/O SCOPE. Due on due Goal Influenza vaccine. Due on due Goal IFOB. Due on due Goal Pap/HPV testing. Due on due Goal Colonoscopy. Due on 017 due Goal IFOB. Due on due Goal URINALYSIS NONAU TO W/O SCOPE. Due on due Goal Zoster vaccine. Due on due Goal Influenza vaccine. Due on due Goal Td vaccine. Due on 17 due Goal Depression screening. Due on due Goal SCREENINGMAMMOGR APHYDIGITAL. Due on due Goal Pap/HPV testing. Due on due Goal Mammogram. Due on 7 due Goal FOBT. Due on due Goal Diabetes Screening. Due on due Goal Pap liquid based for cytology. Due on due Goal CONFERENCE SERVICES MANAGER/Breast exam. Due on due Goal Glucose. Due on due Goal EKG. Due on due Goal Lipid panel. Due on 017 due Goal Cytology report of Cervical and vaginal smear or scraping Cyto stain. Due on due Goal Digital Mammogra m Screening. Due on due Goal IFOB. Due on due Goal Pap liquid based for cytology. Due on due Goal Depression screening. Due on due Goal URINALYSIS NONAU TO W/O SCOPE. Due on due Goal EKG. Due on due Goal Mammogram. Due on 7 due Goal Colonoscopy. Due on 017 due Goal CONFERENCE SERVICES MANAGER/Breast exam. Due on due Goal Zoster vaccine. Due on due Goal Glucose. Due on due Goal FOBT. Due on due Goal Td vaccine. Due on 17 due Goal Lipid panel. Due on 017 due Goal Pap/HPV testing. Due on due Goal Influenza vaccine. Due on due Goal Pap liquid based for cytology. Due on due Goal IFOB. Due on due Goal Zoster vaccine. Due on due Goal CONFERENCE SERVICES MANAGER/Breast exam. Due on due Goal Glucose. Due on due Goal Depression screening. Due on due Goal URINALYSIS NONAU TO W/O SCOPE. Due on due Goal EKG. Due on due Goal Colonoscopy. Due on 016 due Goal Mammogram. Due on 6 due Goal Td vaccine. Due on 16 due Goal Tdap. Due on due Goal FOBT. Due on due Goal Pap/HPV testing. Due on due Goal Influenza vaccine. Due on due Goal Lipid panel. Due on 016 due Referral Ordered: Gardenia Zimmerman DO -Obstetrics and Gynecology (related to Enlarged uterus) ordered Referral Referred To: Gardenia Zimmerman DO [address] [place], [place], [id number] Ordered: Referrals: Obstetrics and Gynecology. Gardenia Zimmerman DO ordered Future Order: Lab Order CBC w/ A uto Diff ([id number]), Sent on: Sent Future Order: Radiol ogy Order MA SCREENINGMAMMOGRAPHYDIGITAL ([id number]), Ordered on: Ordered Future Order: Radiol ogy Order US Pelvis Non-OB Complete ([id number]), Ordered on: Ordered Future Order: Lab Order CBC w/ A uto Diff ([id number]), Ordered on: Ordered Future Order: Lab Order CMP ([id number]), Or dered on: Ordered Future Order: Lab Order Lipid Pr ofile ([id number]), Ordered on: Ordered Future Order: Lab Order Urinalys is And Urine Culture ([id number]), Ordered on: Ordered Future Order: Radiol ogy Order XR Spine Lumbosacral 2 or 3 Views ([id number]), Ordered on: Ordered Future Order: Lab Order Iron Lev el ([id number]), Ordered on: Ordered Future Order: Lab Order CBC w/ A uto Diff ([id number]), Ordered on: Ordered Future Order: Lab Order Ferritin ([id number]), Ordered on: Ordered Future Order: Lab Order Vitamin B12 & Folate Level ([id number]), Ordered on: Ordered Future Order: Radiol ogy Order MA SCREENINGMAMMOGRAPHYDIGITAL ([id number]), Ordered on: Ordered Future Order: Lab Order Cologuar d. (Cologuard.), Ordered on: Ordered Future Order: Lab Order CBC w/ A uto Diff ([id number]), Ordered on: Ordered Future Order: Lab Order Vitamin B12 Level ([id number]), Ordered on: Ordered Future Order: Lab Order Iron & T IBC ([id number]), Ordered on: Ordered Future Order: Lab Order CBC w/ A uto Diff ([id number]), Ordered on: Ordered Future Order: Lab Order Ferritin ([id number]), Ordered on: Ordered Future Order: Lab Order Vitamin B12 & Folate Level ([id number]), Ordered on: Ordered Future Order: Lab Order Stool Oc cult Blood (iFOB) ([id number]), Ordered on: Ordered Future Order: Lab Order CBC w/ A uto Diff ([id number]), Ordered on: Ordered Future Order: Lab Order Ferritin ([id number]), Ordered on: Ordered Future Order: Lab Order Vitamin B12 & Folate Level ([id number]), Ordered on: Ordered Future Order: Lab Order CBC w/ A uto Diff ([id number]), Ordered on: Ordered Future Order: Lab Order Ferritin ([id number]), Ordered on: Ordered Future Order: Lab Order Vitamin B12 & Folate Level ([id number]), Ordered on: Ordered Future Order: Lab Order Potassiu m Level ([id number]), Ordered on: Ordered Future Order: Lab Order Lipid Radha klein ([id number]), Ordered on: Ordered History Of Present Illness Encounter Date Complaint History Of Prese nt Illness ear fullness The symptoms beg an 3 weeks ago. Pt has had a humming, pressure, fullness and buzzing in both ears for about 3 weeks; R worse than L. She leaves for [place] tomorrow so wants it checked out. hypertension Associated sympt oms include fatigue and transient weakness. Pertinent negatives include chest pain, dyspnea and visual disturbances. Additional information: concerns about lisinopril making her nauseous and dizzy / last labs 09/04 viral illness Started of last week; body aches, fever on Saturday and Saturday. Denies any upper respiratory symptoms other than a tickle in her throat and some minor stuffiness. Multiple family members and coworkers are sick with the same symptoms. She states she feels better today than she has since early last week. hypertension Pertinent negati ves include chest pain, dyspnea, fatigue, transient weakness and visual disturbances. Additional information: labs done on 05/18 hypertension Pertinent negati ves include chest pain, dyspnea, fatigue and visual disturbances. Additional information: Started on lisinopril 2-3 weeks ago - pt states she has had minor episodes of dizziness so she started taking it at night. She has been checking her pressure at home, has been 140s/90s hypertension The hypertension is exacerbated by stress. Associated symptoms include headache. Pertinent negatives include chest pain, dyspnea, fatigue, transient weakness and visual disturbances. Additional information: Pt had a recent OBGYN appt and her provider recommended she follow up with PCP d/t high BP in office; first reading was 170s/80s, second was 140s/80s manually at [facility]. vag blg on HRT Pt c/o of vag blg since January. Comments: Brings record showing bleeding most days since then. Was full flow in January/February. Spotting in Mar. Mild cramping when full flow. Pellet expires approx mid-Sept (4m at that time; was told can last 4-6 months). Never had full year without menses before or after HRT. [place] after D&C. Started having some night sweat in January and estrogen was added to mix, then bleeding started. Had this same pattern last May that led to D&C. Thinks it's r/t estrogen. Hormone levels per other provider were in 30's then in 60's (felt better). Notes progesterone is causing sedation, nestor at higher dose. DDD Pt here for 6 mo nt f/u for DDD in lumbar spine. Pt states the sciatica pain on right side has improved since last office visit. Since pt's procedure with [employer] where they did a D&C and took 5 fibroids out of her enlarged uterus, pt has not had any back pain. elevated blood pressure Pt had a n episode during office visit on 12/03/[address] Zimmerman, [employer], for her post op visit. Pt had a procedure done on 11/22/[address] Zimmerman. At the post op appt pt's blood pressure was 155/92 and 170/100. Pt does state she had some tinnitus in her ears at that time. sinus symptoms (acute) The sever ity of the problem is moderate. Symptoms are not associated with tobacco use. Associated symptoms include cough, nasal drainage, postnasal drainage, rhinorrhea, sinus pressure and sore throat. Pertinent negatives include fever, headache or otalgia. Additional information: Pt started feeling not well yesterday afternoon. She had am elevated emp of 99.1, a small tickle in throat today, sore throat, sinus drainage, PND. Pt did try Claritin D which did help the sinus drainage. sinus symptoms (acute) Pertinent /initial symptoms include sinus congestion. Associated symptoms include cough, fever, nasal drainage and postnasal drainage. Pertinent negatives include otalgia or sore throat. Additional information: Patient states symptoms started last Saturday. Patient started taking Tylenol and Advil last Saturday. Positive for flu type A. follow up on lab test(s) Patient is here to review labs completed 08/22/22 preventive exam Additional infor omaira: Patient needs annual wellness per insurance.. Anemia Type of anemia w as acquired for deficiency anemia (iron deficient). Additional information: Labs are due. musculoskeletal pain Onset: 1 mo nth ago. Location: low back. The pain radiates to the rt hip & front of leg. The pain is aggravated by climbing stairs. Additional information: Patient states her low back is painful. follow up on lab test(s) Patient wants to discuss labs completed 07/2022 lump patient reports she had a lump under right arm at the top of axillary area on the right side, reports she noticed it for 10 days, reports was moveable, and now it is gone. denies pain, drainage, redness or swelling, reports she is due for Mammogram in October, denies family history of breast cancer, reports father had Hodgkin's. Anemia Type of anemia w as acquired for deficiency anemia (iron deficient). Additional information: Labs due 08/2021. Anemia (comments) Comments: Pt s tates that she is feeling different , last mestrual period was in October and she recently had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
--- OUTSIDE RECORDS SUMMARY | 2025-01-05 10:44 | XMS_ITS | Patient Health Record ---
Author Organization [facility] in [place] Address [address] [place] [address] Care Team Providers Care Small Offset Printer Name Role Phone Anna MARION [facility] Primary Care Provider Unav RICH Knutson Unavailable [phone] Allergies No Known Allergies Reason For Referral No Information Medications Medication SIG (Take, Route, Frequency, Duration) Notes Start Date End Date Status [place] 3 Active Vitamin D Active Claritin Active [...] Problem Status W/U Status Risk Notes Problem 78330865 Postmenopausal bleeding (N95.0) Active confirmed Problem 34449286 Menopausal and female climacteric states (N95.1) Active confirmed Problem PMB (postmenopau harjinder bleeding) (N95.0) Active confirmed Problem [id number] Abnormal finding s on diagnostic imaging of other specified body structures (R93.89) Active confirmed Encounters Encounter Location Date Provider Diagnosis [facility] [address] [place] [address] 02/05/2024 RICH ROSAS Plan Of Treatment Pending Test Test Name Order Date SEX HORMONE BINDING GLOBULIN 12/05/2023 DIFF 11/22/2023 CBC AND AUTO DIFF * 11/22/2023 DHEA-Sulfate (LC) 12/05/2023 Progesterone (LC) 12/05/2023 Testosterone,Free and Total (LC) 024 Estrone (LC) 12/05/2023 Vitamin D, 25-Hydroxy 12/05/2023 Estradiol Level 12/05/2023 Cortisol 12/05/2023 Insurance Providers Payer Name Payer Address Payer Phone Subscriber Number Group Number Insured Name Patient Relationship to Insured Coverage Start Date Coverage End Date [employer] OUT OF STATE [address] [place] [address] [id number] simi mcclendon Spouse - patient is the spouse of the insured 2023 Medical (General) History Medical History History ICD Code Vitamin B12 deficiency anemia due to int rinsic factor deficiency D51.0 Surgical History Surgery Date(Month/Year) H-scope/ D and C/ myosure 11/22/2023 septoplasty tubal ligation
--- OUTSIDE RECORDS SUMMARY | 2025-01-05 10:44 | XMS_ITS | Clinical Summary ---
Author Organization [employer] tem Address [id number] [address] [place] [address] Care Team Providers Care Clinical Nurse Educator Name Role Phone Bernabe Castillo MD Primary Care Provider [phone] Social History Tobacco Use Types Packs/Day Years Used Date Smoking Tobacco: Never Assessed Childcare Answer Date Recorded Childcare Unknown 01/21/2019 Employment Answer Date Recorded Employment Unknown 01/21/2019 Purpose - Life Answer Date Recorded Purpose and direction in life Unknown Comments Unknown Sex and Gender Information Value Date Recorded Sex Assigned at Female 02/24/2023 8:28 PM EDT Legal Sex Female 11:33 AM EDT Gender Identity Female 02/24/2023 8:28 PM EDT Sexual Orientation Straight 02/24/2023 8: 28 PM EDT Plan of Treatment Health Maintenance Due Date Last Done Comments Depression Screening 1978 Tobacco Screening 1978 Adult BMI Screening 01/26/1984 DTaP,Tdap and Td Vaccines (1 - Tdap) 1985 Pap Smear 1987 Zoster (Shingles) Vaccine (1 of 2) 01/26/2016 Influenza Vaccine 04/12/2025 Medical Devices Not on file Insurance ANTHEM Care Teams Clinical Nurse Educator Relationship Specialty Start Date End Date Bernabe Castillo MD PCP - General Family Medicine 08/13/18
--- NOTE | 2025-01-05 10:50 | MM_ITS ---
Patient Name: JESUS MCLAUGHLIN MR#: [id number] : 1965 Exam Date: 01/05/2025 Ordering Doctor: NON-STAFF PHYSICIAN RADIOLOGY REPORT PROCEDURE: MM TOMOSYNTHESIS SCREENING BI COMPARISON: MM TOMOSYNTHESIS SCREENING BI, 12/19/2023. MG MAMM SCREEN 3D KARLIE CAD, 11/23/2022. MG MAMM SCREEN 3D KARLIE CAD, 11/02/2021. MG MAMM KARLIE SCRN W CAD DIG, 08/30/2011. INDICATIONS: Screening Calculator Name NCI Breast Cancer Risk Assessment Tool 5 Year Breast Cancer Risk 1.10% Lifetime Breast Cancer Risk 6.30% Personal Breast Cancer No Personal Ovarian Cancer No Treatments None Family Cancers Father with hodgkins lymphoma cancer at age 55. LOCATION: [facility] BREAST COMPOSITION: The breasts are heterogeneously dense,which may obscure small masses. FINDINGS: RIGHT BREAST: No significant suspicious finding. LEFT BREAST: No significant suspicious finding. DIAGNOSTIC CATEGORY 1--NEGATIVE. RECOMMENDATIONS: ROUTINE MAMMOGRAM AND CLINICAL EVALUATION IN 12 MONTHS. PLEASE NOTE: A NORMAL MAMMOGRAM DOES NOT EXCLUDE THE POSSIBILITY OF BREAST CANCER. A CLINICALLY SUSPICIOUS PALPABLE LUMP SHOULD BE BIOPSIED. Dictated by: Prasanth Sandhu DO on 01/05/2025 at 12:05 Approved by: Prasanth Sandhu DO on 01/05/2025 at 12:16
--- OUTSIDE RECORDS SUMMARY | 2025-01-05 17:02 | XMS_ITS | CCD ---
Author Organization [facility] Care Team Providers Care Ticket Chopper Assembler Name Role Phone MICHELE, DR ESTRADA Admitting Unavailable [facility] [place], DR ESTRADA Attending Unavailable [facility] [place], DR ESTRADA Primary Care Unavailable ATALISSA, DR BETSY Hawley Consulting Unavailable [facility] [place], DR ESTRADA Consulting Unavailable Medications Current Medications Medication Drug Class(es) Dates Sig (Normalized) Sig (Original) amoxicillin 875 mg / clavulanate 125 mg oral tablet (1 source) Penicillin-class Antibacterial Start: 08-24-2024 take 1 tablet by mouth twice daily Amoxicillin-Pot Clavulanate 875-125 mg tablet Active 1 TAB PO Twice daily 20 August 24, 2024 12:00am lisinopril 40 mg oral tablet (1 source) Angiotensin Converting Enzyme Inhibitor Start: 08-24-2024 take 1 tablet by mouth once daily Lisinopril 40 mg tablet Active 40 MG PO Daily August 24, 2024 12:00am Problems Problem Classification Problem Date Documented Date Episodic/Chronic Essential hypertension (1 source) Hypertensive disorder; Translations: [Essential (primary) hypertension] 08-24-2024 Chronic Other screening for suspected conditions (not mental disorders or infectious disease) (4 sources) Encounter for screening mammogram for malignant neoplasm of breast; Translations: [ENC SCR MAMMO MALIG NEOPLASM BREAST] Onset: 11-23-2022 Episodic Other upper respiratory infections (2 sources) Sinusitis; Translations: [Chronic sinusitis, unspecified] 08-24-2024 Chronic Residual codes; unclassified (1 source) Family history of other malignant neoplasms of lymphoid, hematopoietic and related tissues; Translations: [FAM HX OTH MAL BETTIE LYMPH HEMATPOETC] Onset: 11-30-2022 Episodic Results Test Name Value Interpretation Reference Range Facil ity MG MAMM SCREEN 3D KARLIE CADon 11-23-2022 MG MAMM SCREEN 3D KARLIE CAD Patient: ALEJANDRA MCCLENDON. Exam Date: 11/23/2022 : 1965 Gender:F Ordering : DR. BERNABE ZHOU Admission #: [id number] Family : Order #: [id number] CLICK HERE TO VIEW EXAM RADIOLOGY REPORT [...] hodgkins lymphoma cancer at age 56. LOCATION: [facility] BREAST COMPOSITION: Heterogeneously dense,which may obscure small [...] Kellogg MD on 11/26/2022 at 09:55 Normal [facility] Vital Signs Date Time Vital Sign Value Performing Clinician Shani olson 08-24-2024 12:07-0500 Body height 170.18 cm [facility] 08-24-2024 12:07-0500 Body mass index (BMI) [Ratio] 22.6 kg/m2 [facility] 08-24-2024 12:07-0500 Body temperature 98.1 [degF] [facility] 08-24-2024 12:07-0500 Body weight 65.48 kg [facility] 08-24-2024 12:07-0500 Diastolic blood pressure 90 mm[Hg] [facility] 08-24-2024 12:07-0500 Heart rate 84 /min [facility] 08-24-2024 12:07-0500 Respiratory rate 14 /min [facility] 08-24-2024 12:07-0500 SaO2% (BldA) [Mass fraction] 98 % [facility] 08-24-2024 12:07-0500 Systolic blood pressure 129 mm[Hg] [facility] Encounters Encounter Date Encounter Type Care Provider Facility Start: 08-24-2024 End: 08-24-2024 ambulatory [facility] Work Phone: Start: 08-24-2024 End: 08-24-2024 Patient encounter procedure [facility] Work Phone: Start: 11-23-2022 End: 11-24-2022 ambulatory [facility]CTOR [facility] Facility: Payers Date Payer Category Payer Unknown [id number] 1958 Unknown [id number] Social History Date Type Detail Facility Start: 08-24-2024 Tobacco smoking stat us [facility] Never smoked tobacco (finding) [facility] Start: 08-24-2024 Sex Female (finding) [facility] Start: 1965 Sex Assigned At Female F [facility] Evaluation note Note Date & Type Note Facility Evaluation note Diagnosis Onset Date Resolution Sinusitis acute August 24, 2024 12:03pm [facility] Work Phone: Summary Purpose Family History No Family History Records Found Advance Directives Advance Directive Response Recorded Date/ Time Advance Directives No August 24, 2024 11:57am Chief Complaint and Reason for Visit Chief Complaint Admit Date Sinus congestion, cough August 24 12:03pm Reason for Visit Admit Date Sinusitis August 24, 2024 1 2:03pm Additional Source Comments INFORMATION SOURCE (unrecogn ized section and content) DATE CREATED AUTHOR 12/01/2022 [facility] Care Teams (unrecognized sec tion and content) Team Status: Active Member Role Status Dates Bernabe Zhou MD Primary Care Provider Active Team Status: Inactive Member Role Status Dates Marixa Lopes APRN Attending Provider Active S tart: August 24, 2024 End: August 24, 2024 Bernabe Zhou MD Primary Care Provider Active Start: August 24, 2024 End: August 24, 2024 Goals (unrecognized section and content) Goals may be documented in a n alternate section FOR RECORDS PERTAINING TO PATIENTS WHO ARE [...] BE BASED ON THE PRIMARY CLINICAL RECORDS. [facility] [employer] [facility]. provides no warranty or guarantee of the accuracy or completeness of information in this document.
== END 2025-01-05 10:43 | disposition home or self-care (01) ==
LOC: MAMMO 10:42
DX: Z12.31 Encounter for screening mammogram for malignant neoplasm of breast (principal); Z80.7 Family history of other malignant neoplasms of lymphoid, hematopoietic and related tissues
CPT/HCPCS: 77063; 77067